=== PATIENT | female | born 1955 | race Caucasian/White ===

== ENCOUNTER 2016-05-10 14:09 | Observation (INO) ==
[2016-05-10] MEDS ORDERED: 0.9 % Sodium Chloride 1,000 ML IVC ONE (14:25)
[2016-05-10] MEDS ORDERED: *HR* Metoprolol 5 MG/5 ML VIAL IVP ONE ×2 (14:34→15:25)
--- NOTE | 2016-05-10 14:35 | Emergency Department Note ---
Disposition Clinical Impression: Atrial fibrillation with RVR, History of mitral valve replacement Disposition: Admitted As Inpatient Condition: Fair Time of Disposition: 16:55 Arrhythmia/Palpitations HPI - General Chief Complaint: ED Arrhythmia/Palpitations Stated Complaint: A-FIB Time Seen by Provider: 05/10/16 14:24 Source: patient Limitations: no limitations Nursing Notes Reviewed: Yes Vital Signs Reviewed: Yes - History of Present Illness HPI Narrative: 60-year-old female with history of mitral valve replacement at [facility] in 2007, history of paroxysmal A. fib, normally is rate controlled and rhythm controlled, takes metoprolol 75 mg twice a day, but it lasted today she been going in and out of A. fib, she had a pacemaker placed in 2007 as well after she had V. fib arrest, her pacemaker was interrogated and did show multiple bouts of atrial fibrillation. Patient has had some URI symptoms including cough and congestion. Is a [id number]-hshoxppxt diabetic. States that her sugars up and in control, denies chest pain cough fever chills, urinary symptoms Pt Subjective Complaint: rapid heart beat, "heart racing" Onset (ago): day(s) (2) Duration: intermittent Severity: moderate Context: occurred during rest Arrhythmia History: atrial fibrillation Associated symptoms: Reports: denies other symptoms - Related Data Home Medications Medication Instructions Recorded Confirmed Atorvastatin Calcium [Atorvastatin 20 mg PO DAILY 05/10/16 05/10/16 Calcium] BuPROPion SR (12 HR) [Wellbutrin 150 mg PO BID 05/10/16 05/10/16 SR] Cholecalciferol (D-3) [Vitamin D] 2,000 unit PO DAILY 05/10/16 05/10/16 Fenofibric Acid (Choline) 135 mg PO HS 05/10/16 05/10/16 [Fenofibric Acid] LORazepam [Ativan] 1 mg PO HS 05/10/16 05/10/16 Levothyroxine Sodium 37.5 mcg PO DAILY 05/10/16 05/10/16 [Levothyroxine Sodium] Losartan [Cozaar] 25 mg PO DAILY 05/10/16 05/10/16 Metformin HCl [Metformin HCl] 1,000 mg PO BID 05/10/16 05/10/16 Metoprolol Tartrate [Metoprolol 75 mg PO BID 05/10/16 05/10/16 Tartrate] Mometasone Furoate [Asmanex] 1 puff IH DAILY 05/10/16 05/10/16 Montelukast [Singulair] 10 mg PO DAILY 05/10/16 05/10/16 Omeprazole [PriLOSEC] 40 mg PO DAILY 05/10/16 05/10/16 Tiotropium [place] [Spiriva 1 puff IH BID 05/10/16 05/10/16 Respimat] Warfarin [Coumadin] 3.5 mg PO DAILY 05/10/16 05/10/16 Allergies Allergy/AdvReac Type Severity Reaction Status Date / Time epinephrine Allergy Wheezing Verified 01/09/16 07:36 Hydromorphone [From Dilaudid] Allergy Itching Verified 01/09/16 07:36 Penicillins Allergy Wheezing Verified 01/09/16 07:36 Review of Systems: A 10 point ROS was obtained from the historian. All other systems were reviewed and negative, except as per below, or as documented in the HPI. Constitutional: Denies: fever, chills, weight changes Eyes: Denies: vision changes, eye pain ENT: Denies: nasal congestion, sore throat CV: chest pain, palpitationsDenies: leg swelling Resp: Denies: cough, dyspnea, wheezes, hemoptysis GI: Denies: abdominal pain, N/V/D/C, hematochezia, melena Denies: dysuria, hematuria MSK: Denies: back pain, neck pain, extremity pain Skin: Denies: new rashes, new lesions Neuro: Denies: SHARMA, weakness, sensory changes, gait difficulty Psych: Denies: anxiety, depression All systems ED: reviewed and negative except as stated. Past Medical History - Past Medical History Attestation: Yes The following information was validated with the patient. Source: patient Medical history: Reports: atrial fibrillation, CVA, diabetes, hypertension, thyroid disease, other - Social History Smoking Status: Never smoker Alcohol use: Reports: none Drug use: Reports: none Physical Exam Constitutional: alert and oriented, mild distress, vital signs reviewed and were tachycardia Neck: normal inspection, neck is supple, trachea midline, no JVD Resp: normal chest inspection, CTA bilaterally, no resp distress, symmetric chest rise CV: Irregularly irregular rhythm systolic ejection murmur, Pulses +2 Rad, +2 DP/ PT bilaterally, no pedal edema Back: normal inspection, no tenderness to palpation Neuro: A&O3, CN II-XII grossly intact bilaterally, no gross motor or sensory deficits bilaterally MSK: normal inspection, bilateral UE and LE with normal ROM and no deformities Psych: normal mood, normal affect Skin: No rashes, skin warm, dry, intact - General Limitations: no limitations General appearance: alert Course Course Narrative: 60-year-old female with paroxysmal A. fib, will try 50 g of Lopressor, 1 L of fluids, reassessment. Chest pain workup - Reevaluation(s) Reevaluation #1: Admitted to medicine 200cc of fluids, in will give Cardizem gtt if unable to convert to sinus after fluids prior to floor. Time: 16:55 - Consultations Consultation #1: SPoke with Dr Carter given rate in 80s hx of afib mitral stenosis MVR, and anticoagulated, now rate controlled OK for DC home, but could obs to hospitalist cards will consult. After this patient went to 120s, second 1 L of fluids ordered will addmit for Afib RVR cards consult. Time: 16:19 Vital Signs Temperature 97.4 F L 05/10/16 14:10 Pulse Rate 122 05/10/16 14:10 Respiratory Rate 18 05/10/16 14:10 Blood Pressure 115/63 05/10/16 14:10 O2 Sat by Pulse Oximetry 95 05/10/16 14:10 Temperature 98.6 F 05/10/16 19:29 Pulse Rate 78 05/10/16 19:29 Respiratory Rate 15 05/10/16 19:29 Blood Pressure 114/72 05/10/16 19:29 O2 Sat by Pulse Oximetry 94 L 05/10/16 19:29 Oxygen Delivery Oxygen Delivery Room Air Arrhythmia/Palpitations - [facility] Narrative Medical decision making narrative: 60 female with facial fibrillation rapid ventricular response, unable to convert with fluids and IV metoprolol, admitted to medicine service after consultation with cardiology in stable condition. - Differential Diagnosis Differential Diagnosis: Likely: palpitations, artial arrhythmia - Medical Records Medical records reviewed: Yes I reviewed the patient's medical records. - Lab Data Lab results reviewed: Yes I reviewed the patient's lab results. Result diagrams: 05/10/16 14:35 05/10/16 14:35 Lab Results 05/10/16 05/10/16 05/10/16 Range/Units 14:35 14:35 14:35 WBC 8.5 (4.3-11.1) K/mcL RBC 4.82 (3.82-4.97) M/mcL Hgb 13.1 (11.5-15.4) g/dL Hct 41.9 (35.3-44.9) % MCV 86.9 (83.0-100.0) fL MCH 27.2 L (28.0-33.3) pg MCHC 31.3 L (31.6-35.5) g/dL RDW 14.9 H (11.5-14.5) % Plt Count 331 (140-400) K/mcL MPV 10.6 (9.4-12.4) fL Immature Gran % 0.4 (0-4) % Seg Neutrophils % 59.6 % Lymphocytes % 26.5 % Monocytes % 9.0 % Eosinophils % 3.8 % Basophils % 0.7 % Neutrophils # 5.1 (1.6-8.9) K/mcL Lymphocytes # 2.2 (0.6-4.6) K/mcL Monocytes # 0.8 (0.0-1.3) K/mcL Eosinophils # 0.3 (0.0-0.6) K/mcL Basophils # 0.1 (0.0-0.2) K/mcL PT (9.4-12.1) Seconds INR APTT (26.0-36.0) Seconds Sodium 138 (136-145) mEq/L Potassium 3.7 (3.5-4.5) mEq/L Chloride 105 (98-109) mEq/L Carbon Dioxide 23 (19-29) mEq/L BUN 14 (7-20) mg/dL Creatinine 0.84 (0.57-1.11) mg/dL Est GFR ( Amer) > 60 (> 60) Est GFR (Non-Af Amer) > 60 (> 60) BUN/Creatinine Ratio 17 (6-26) Glucose 300 H (70-99) mg/dL Calculated Osmolality 298 (280-300) Calcium 10.8 (8.6-10.8) mg/dL Troponin I 0.00 (0-0.03) ng/mL Urine Color (Yellow) Urine Clarity (Clear) Urine pH (5.0-8.0) pH Units Ur Specific [place] (1.010-1.025) Urine Protein (Neg-Trace) mg/dL Urine Glucose (UA) (Normal) mg/dL Urine Ketones (Negative) mg/dL Urine Blood (Negative) Urine Nitrite (Negative) Urine Bilirubin (Negative) Urine Urobilinogen (Normal) mg/dL Ur Leukocyte Esterase (Negative) Ur Culture Indicated? (NO) 05/10/16 05/10/16 Range/Units 14:35 15:04 WBC (4.3-11.1) K/mcL RBC (3.82-4.97) M/mcL Hgb (11.5-15.4) g/dL Hct (35.3-44.9) % MCV (83.0-100.0) fL MCH (28.0-33.3) pg MCHC (31.6-35.5) g/dL RDW (11.5-14.5) % Plt Count (140-400) K/mcL MPV (9.4-12.4) fL Immature Gran % (0-4) % Seg Neutrophils % % Lymphocytes % % Monocytes % % Eosinophils % % Basophils % % Neutrophils # (1.6-8.9) K/mcL Lymphocytes # (0.6-4.6) K/mcL Monocytes # (0.0-1.3) K/mcL Eosinophils # (0.0-0.6) K/mcL Basophils # (0.0-0.2) K/mcL PT 33.8 H (9.4-12.1) Seconds INR 3.0 APTT 41.7 H (26.0-36.0) Seconds Sodium (136-145) mEq/L Potassium (3.5-4.5) mEq/L Chloride (98-109) mEq/L Carbon Dioxide (19-29) mEq/L BUN (7-20) mg/dL Creatinine (0.57-1.11) mg/dL Est GFR ( Amer) (> 60) Est GFR (Non-Af Amer) (> 60) BUN/Creatinine Ratio (6-26) Glucose (70-99) mg/dL Calculated Osmolality (280-300) Calcium (8.6-10.8) mg/dL Troponin I (0-0.03) ng/mL Urine Color Yellow (Yellow) Urine Clarity Clear (Clear) Urine pH 6.5 (5.0-8.0) pH Units Ur Specific [place] 1.009 L (1.010-1.025) Urine Protein Negative (Neg-Trace) mg/dL Urine Glucose (UA) 100 H (Normal) mg/dL Urine Ketones Negative (Negative) mg/dL Urine Blood Negative (Negative) Urine Nitrite Negative (Negative) Urine Bilirubin Negative (Negative) Urine Urobilinogen Normal (Normal) mg/dL Ur Leukocyte Esterase Negative (Negative) Ur Culture Indicated? NO (NO) - Radiology Data Radiology results reviewed: Yes I reviewed the patient's radiology results. - EKG Data EKG attestation: Yes I reviewed and interpreted this EKG. Rate: tachycardia (121 bpm) Rhythm: A.Fib ST segment depression in: v2 Interpretation: no acute changes ([id number]) Attestation Statement - Attestation Attestation: For this encounter, I have reviewed the resident, SCALLOP DREDGER, or PA documentation, treatment plan, and medical decision making; and I have had face to face time with this patient. 60-year-old female presents with concerns of atrial fibrillation. Patient states that she has a history of paroxysmal atrial fibrillation and occasionally goes into an abnormal rhythm. Patient states she felt herself go into atrial fibrillation earlier today prior to arrival. Last and she was evaluated for atrial fibrillation and she was given IV fluids and converted back to sinus rhythm. Patient has a history of mitral valve replacement and follows Dr. Griffith for cardiology. On physical exam the patient has lungs that are clear to auscultation bilaterally. She has pulses palpable in all extremities. Patient was given a liter of IV fluids as well as 2 doses of Lopressor which did improve her heart rate however her BP dropped below 100 systolic. Patient felt lightheaded in the emergency department. The resident spoke with Dr. Carter regarding the patient's case and presentation who agreed with the plan for admission to the hospital for continuation of care. Patient was started on Cardizem in the emergency department prior to going upstairs. BP stable prior to departure. Patient was admitted to the hospitalist for continued care.
[2016-05-10 14:51] LABS: Basophils # 0.1 K/mcL (0.0-0.2); Basophils % 0.7 %; Bilirubin,Urine Negative (Negative); Blood,Urine Negative (Negative); Clarity,Urine Clear (Clear); Color,Urine Yellow (Yellow); Eosinophils # 0.3 K/mcL (0.0-0.6); Eosinophils % 3.8 %; Glucose,Urine (UA) 100 mg/dL (Normal); Hematocrit 41.9 % (35.3-44.9); Hemoglobin 13.1 g/dL (11.5-15.4); Immature Granulocytes % 0.4 % (0-4); Ketones,Urine Negative (Negative); Leukocyte Esterase,Urine Negative (Negative); Lymphocytes # 2.2 K/mcL (0.6-4.6); Lymphocytes % 26.5 %; Mean Corpuscular HGB Conc 31.3 g/dL (31.6-35.5); Mean Corpuscular Hemoglobin 27.2 pg (28.0-33.3); Mean Corpuscular Volume 86.9 fL (83.0-100.0); Mean Platelet Volume 10.6 fL (9.4-12.4); Monocytes # 0.8 K/mcL (0.0-1.3); Neutrophils # 5.1 K/mcL (1.6-8.9); Nitrite,Urine Negative (Negative); PH,Urine 6.5 pH Units (5.0-8.0); Platelet Count 331 K/mcL (140-400); Protein,Urine Negative (Neg-Trace); Red Blood Count 4.82 M/mcL (3.82-4.97); Red Cell Distribution Width 14.9 % (11.5-14.5); Segmented Neutrophils % 59.6 %; Specific Gravity,Urine 1.009 (1.010-1.025); Urobilinogen,Urine Normal (Normal)
[2016-05-10 15:02] LABS: BUN/Creatinine Ratio 17 (6-26); Blood Urea Nitrogen 14 mg/dL (7-20); Calcium 10.8 mg/dL (8.6-10.8); Carbon Dioxide 23 mEq/L (19-29); Chloride 105 mEq/L (98-109); Glucose 300 mg/dL (70-99); Osmolality,Calculated 298 (280-300); Potassium 3.7 mEq/L (3.5-4.5); Sodium 138 mEq/L (136-145); eGFR For African Americans > 60 (> 60); eGFR For Non-African Americans > 60 (> 60)
[2016-05-10 15:19] LABS: Prothrombin Time 33.8 Seconds (9.4-12.1)
[2016-05-10 15:22] LABS: Activated Partial Thrombo Time 41.7 Seconds (26.0-36.0)
[2016-05-10] MEDS ORDERED: 0.9 % Sodium Chloride 1,000 ML IV ONE (16:21)
[2016-05-10] MEDS ORDERED: Dextrose Gel 15 GM PO PRN ×2 (20:28)
[2016-05-10] MEDS ORDERED: Ondansetron 4 MG/2 ML VIAL IVP PRN (20:28)
[2016-05-10] MEDS ORDERED: D5% in Water 1,000 ML IV PRN ×2 (20:28→20:33)
[2016-05-10] MEDS ORDERED: *HR* HYDROcodone/Acet 5/325 mg TABLET PO PRN (20:28)
[2016-05-10] MEDS ORDERED: *HR* Dextrose 50 % in Water (Syg) 50 ML SYRINGE IVP PRN (20:28)
[2016-05-10] MEDS ORDERED: Mag Hydrox/Al Hydrox/Simeth 30 ML UDC PO PRN (20:28)
[2016-05-10] MEDS ORDERED: Acetaminophen 325 MG TABLET PO PRN (20:28)
[2016-05-10] MEDS ORDERED: Naloxone 0.4 MG/ML INJ IVP PRN (20:28)
[2016-05-10] MEDS ORDERED: MOM Conc 10 ML UD.LIQ PO PRN (20:28)
[2016-05-10] MEDS ORDERED: 0.9 % Sodium Chloride 1,000 ML IVC SCH (20:30)
[2016-05-10] MEDS ORDERED: *HR* LORazepam 1 MG TABLET PO SCH (21:00)
[2016-05-10] MEDS ORDERED: BuPROPion SR (12 HR) 150 MG TABLET PO SCH (21:00)
[2016-05-10] MEDS ORDERED: Fenofibrate 54 MG TABLET PO SCH (21:00)
[2016-05-10] MEDS ORDERED: Insulin LISPRO 300 UNITS/3 ML VIAL SQ SCH (21:00)
--- NOTE | 2016-05-10 21:37 | Internal Med History&Physical ---
Date of Encounter: 05/10/16 Time of Encounter: 20:00 Assessment and Plan (1) Atrial fibrillation with RVR Current visit: Yes Status: Chronic Pt in afib for the last 2 days. She normally converts with IV fluids. Original EKG in ED a-fib RVR, rate 121. Pt takes Metoprolol 50mg po bid for rate and rhythm control and has not missed doses. She believes that URI symptoms are the cause of this episode. During exam pt was found to be regular rate and rhythm. Repeat EKG shows paced rhythm, rated 60. Pt has denied cp or sob throughout. Maintain metoprolol dose [employer] VS Gentle IV hydration 0.9NS at 75ml/hour (2) URI (upper respiratory infection) Current visit: Yes Status: Acute Pt states that she has had 2 days of weakness, fatigue, non productive cough and rhinorrhea. Denies fever. Flu swab ordered and pending. Qualifiers: URI type: unspecified viral URI Qualified Code(s): J06.9 - Acute upper respiratory infection, unspecified; B97.89 - Other viral agents as the cause of diseases classified elsewhere (3) Pacemaker Current visit: Yes Status: Acute Pacemaker implanted in 2007 after cardiac arrest at [facility] 1 day s/p mitral valve replacment. Last EKG showed paced rhythm. Interrogated today. 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 (5) Diabetes mellitus Current visit: Yes Status: Acute Serum glucose 300 in ED, 1 hour post prandial. A1c 7.3 in Jan 2016 A1c Diabetic diet Sliding scale insulin Accucheck achs Qualifiers: Diabetes mellitus type: type 2 Diabetes mellitus complication status: without complication Diabetes mellitus longterm insulin use: without termite treater helper use Qualified Code(s): E11.9 - Type 2 diabetes mellitus without complications Internal Medicine - H&P: HPI Admitted From: Home Plans for Post Hospital Care: Home History of present illness: Ms. Chen is a 60 year old female with a history of mitral valve replacement in 2007, cardiac arrest and pacer placement, and paroxysmal afib. She reports URI symptoms with cough, congestion, weakness, fatigue, and rhinorrhea for 2 days, which she believes caused the a-fib. She states that normally she can convert with a liter of IV fluids, however 2 liters today did not convert her. She normally takes metoprolol 75mg po bid for rate and rhythm control and has not missed a dose. 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 During exam, I noted that her rate was 62 and her apical and radial both felt regular. Stat EKG ordered which showed paced rhythm. Past Med Surg Social Fam HX - Past Medical History Medical history: atrial fibrillation, CVA, diabetes, hypertension, thyroid disease, other Psychiatric history: no psych history - Past Surgical History Surgical History: hysterectomy, pacemaker/AICD - Social History Smoking Status: Never smoker Smokeless Tobacco Status: No Alcohol use: none Drug use: none - Family History Mother Age: 79 Living Status: Still Living Hx Family Cardiac Disorders: Yes Hx Family Cancer: Yes Hx Family Endocrine Disorder: Yes Internal Medicine - H&P: Meds Atorvastatin Calcium [Atorvastatin Calcium] 20 mg PO DAILY 05/10/16 [History] BuPROPion SR (12 HR) [Wellbutrin SR] 150 mg PO BID 05/10/16 [History] Cholecalciferol (D-3) [Vitamin D] 2,000 unit PO DAILY 05/10/16 [History] Fenofibric Acid (Choline) [Fenofibric Acid] 135 mg PO HS 05/10/16 [History] LORazepam [Ativan] 1 mg PO HS 05/10/16 [History] Levothyroxine Sodium [Levothyroxine Sodium] 37.5 mcg PO DAILY 05/10/16 [History] Losartan [Cozaar] 25 mg PO DAILY 05/10/16 [History] Metformin HCl [Metformin HCl] 1,000 mg PO BID 05/10/16 [History] Metoprolol Tartrate [Metoprolol Tartrate] 75 mg PO BID 05/10/16 [History] Mometasone Furoate [Asmanex] 1 puff IH DAILY 05/10/16 [History] Montelukast [Singulair] 10 mg PO DAILY 05/10/16 [History] Omeprazole [PriLOSEC] 40 mg PO DAILY 05/10/16 [History] Tiotropium [place] [Spiriva Respimat] 1 puff IH BID 05/10/16 [History] Warfarin [Coumadin] 3.5 mg PO DAILY 05/10/16 [History] Allergies epinephrine Allergy (Verified 01/09/16 07:36) Wheezing Hydromorphone [From Dilaudid] Allergy (Verified 01/09/16 07:36) Itching Penicillins Allergy (Verified 01/09/16 07:36) Wheezing All Systems PM: A 10-system review of systems was performed and is negative for pertinent findings except as documented above in the HPI. - Constitutional Constitutional: fatigue, weakness, no chills, no fever(s), no night sweats - Cardiovascular Cardiovascular ROS IM: irregular heart rhythm, palpitations, no chest pain, no diaphoresis, no dyspnea, no edema, no lightheadedness - Respiratory Respiratory: no cough, no dyspnea on exertion, no wheezing, no pain on inspiration, no pain with cough - Gastrointestinal Gastrointestinal: no constipation, no diarrhea, no nausea, no vomiting - Constitutional Vitals: Temp Pulse Resp BP Pulse Ox 98.6 F 78 15 114/72 94 L 05/10/16 19:29 05/10/16 19:29 05/10/16 19:29 05/10/16 19:29 05/10/16 19:29 General appearance: Present: A&O X 3, pleasant Exam: Pt was very pale on initial exam. - Head Head exam: Present: atraumatic, normal inspection - Neck Neck exam general surgery: Absent: lymphadenopathy, tenderness - Respiratory Respiratory exam: Present: CTAB. Absent: accessory muscle use, chest wall tenderness, decreased breath sounds, rales - Cardiovascular Cardiovascular exam: Present: RRR, +S1, +S2 - GI/Abdominal GI/Abdominal exam: Present: normal bowel sounds. Absent: tenderness - Extremities Exam Extremities exam: Present: full ROM, normal capillary refill, normal inspection , warm, radial pulses palpable and symetrical. Absent: calf tenderness, joint swelling, pedal edema, tenderness - Neurological Exam Neurological exam: Present: alert, oriented X3. Absent: facial droop, speech deficit Internal Med - H&P Results - Labs CBC & Chem 7: 05/10/16 14:35 05/10/16 14:35 - EKG Data EKG shows normal: sinus rhythm Rate: normal - EKG Data EKG comments: 05/10/16 21:49 Per HPI pt was regular rate and rhythm during exam. Repeat EKG showed atrial pacing HI int 203 QRS 86 QT/QTc 415/415
[2016-05-10] MEDS ORDERED: *HR* Warfarin 1 MG TABLET PO SCH (22:45)
[2016-05-10] MEDS: Budesonide Neb 0.5 MG/2 ML IH SCH (23:11)
[2016-05-11 06:34] VITALS: BP 105/64
[2016-05-11 06:49] LABS: Basophils % 0.6 %; Eosinophils # 0.3 K/mcL (0.0-0.6); Eosinophils % 4.3 %; Hematocrit 33.3 % (35.3-44.9); Hemoglobin 10.5 g/dL (11.5-15.4); Immature Granulocytes % 0.1 % (0-4); Immature Platelets 3.7 % (1.1-6.1); Lymphocytes # 2.2 K/mcL (0.6-4.6); Lymphocytes % 30.6 %; Mean Corpuscular HGB Conc 31.5 g/dL (31.6-35.5); Mean Corpuscular Hemoglobin 27.9 pg (28.0-33.3); Mean Corpuscular Volume 88.3 fL (83.0-100.0); Mean Platelet Volume 10.9 fL (9.4-12.4); Monocytes # 0.8 K/mcL (0.0-1.3); Monocytes % 11.2 %; Neutrophils # 3.7 K/mcL (1.6-8.9); Platelet Count 248 K/mcL (140-400); Red Blood Count 3.77 M/mcL (3.82-4.97); Red Cell Distribution Width 15.2 % (11.5-14.5); Segmented Neutrophils % 53.2 %
[2016-05-11 07:03] LABS: BUN/Creatinine Ratio 18 (6-26); Blood Urea Nitrogen 13 mg/dL (7-20); Calcium 9.8 mg/dL (8.6-10.8); Carbon Dioxide 23 mEq/L (19-29); Chloride 109 mEq/L (98-109); Glucose 185 mg/dL (70-99); Osmolality,Calculated 295 (280-300); Potassium 3.9 mEq/L (3.5-4.5); Sodium 140 mEq/L (136-145); eGFR For African Americans > 60 (> 60); eGFR For Non-African Americans > 60 (> 60)
[2016-05-11] MEDS ORDERED: Insulin LISPRO 300 UNITS/3 ML VIAL SQ SCH (07:30)
[2016-05-11] MEDS: Budesonide Neb 0.5 MG/2 ML IH SCH (07:51)
--- NOTE | 2016-05-11 08:19 | Cardiology Consult Note ---
Date of Encounter: 05/11/16 Time of Encounter: 07:30 Assessment and Plan (1) PAF (paroxysmal atrial fibrillation) Current Visit: Yes Status: Acute Longstanding hx of PAF controlled on betablocker. She states she typically converts with IVF fluid and extra doses of betablocker. Discussed adding additional agent, cardizem, due to frequent episodes of PAF; however, she is not intersted at this time. Discussed antiarrhythmic therapy, she declines at this time. Converted to SR yesterday evening. RVR likely provoked by URI and uncontrolled blood glucose. Anticoagulted on Coumadin, goal INR 2.5-3.5, hx of mechanical MV. Offered appt with [facility] Rasheed; however, at this time she wishes to follow-up with Dr. Yin. No further cardiac testing warranted at this time, Cardiology will sign-off. 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 (3) Pacemaker Current Visit: Yes Status: Acute Routinely follows with [facility]. Discussion w patient/family: The assessment and plan as outlined above was discussed with the patient and/or family members who expressed understanding and agreement. All questions were answered. Thank you for involving us in the care of your patient. Please call with any questions. The patient will be discussed and reviewed with Dr. Carter; changes to be made accordingly. History of Present Illness Consult date: 05/11/16 Requesting physician: Pretty Piña Consult reason: Afib with RVR Chief complaint: Palpitations History of present illness: Ms. Chen is a 60 year old female with PMH significant for TRENT on Bipap, PAF, MVR, PPM, and DMII who presented to ED with 1-2 day history of palpitations, she reports she knew she was in atrial fibrillation. Associated symptoms include uncontrolled blood glucose and URI symptoms. She took an extra 50 mg of Lopressor at home on Friday, however she remained in atrial fibrillation. She reports several episodes of PAF in the past few months, she states afib typically occurs with any illness, fatigue, or when she is really tired. Recent CV testing: TTE (limited) 09/06/15: EF 60%, normal functioning MV Regadenoson nuclear 02/27/16: perfusion imaging negative for ischemia or infarct Past Med Surg Social Fam HX - Past Medical History Medical history: atrial fibrillation, CVA, diabetes, hypertension, thyroid disease, valvular heart disease (MVR) Psychiatric history: no psych history - Past Surgical History Surgical History: heart valve replacement, hysterectomy, pacemaker - Social History Smoking Status: Never smoker Smokeless Tobacco Status: No Alcohol use: none Drug use: none - Family History Mother Age: 79 Living Status: Still Living Hx Family Cardiac Disorders: Yes Hx Family Cancer: Yes Hx Family Endocrine Disorder: Yes Medications and Allergies Atorvastatin Calcium [Atorvastatin Calcium] 20 mg PO DAILY 05/10/16 [History] BuPROPion SR (12 HR) [Wellbutrin SR] 150 mg PO BID 05/10/16 [History] Cholecalciferol (D-3) [Vitamin D] 2,000 unit PO DAILY 05/10/16 [History] Fenofibric Acid (Choline) [Fenofibric Acid] 135 mg PO HS 05/10/16 [History] LORazepam [Ativan] 1 mg PO HS 05/10/16 [History] Levothyroxine Sodium [Levothyroxine Sodium] 37.5 mcg PO DAILY 05/10/16 [History] Losartan [Cozaar] 25 mg PO DAILY 05/10/16 [History] Metformin HCl [Metformin HCl] 1,000 mg PO BID 05/10/16 [History] Metoprolol Tartrate [Metoprolol Tartrate] 75 mg PO BID 05/10/16 [History] Mometasone Furoate [Asmanex] 1 puff IH DAILY 05/10/16 [History] Montelukast [Singulair] 10 mg PO DAILY 05/10/16 [History] Omeprazole [PriLOSEC] 40 mg PO DAILY 05/10/16 [History] Tiotropium [place] [Spiriva Respimat] 1 puff IH BID 05/10/16 [History] Warfarin [Coumadin] 3.5 mg PO DAILY 05/10/16 [History] Allergies epinephrine Allergy (Verified 01/09/16 07:36) Wheezing Hydromorphone [From Dilaudid] Allergy (Verified 01/09/16 07:36) Itching Penicillins Allergy (Verified 01/09/16 07:36) Wheezing All Systems Review: A 10-system review of systems was performed and is negative for pertinent findings except as documented above in the HPI. - Cardiovascular Cardiovascular: as per HPI Physical Examination Vital Signs, Last 4 Hours Temp Pulse Resp BP Pulse Ox 05/11/16 07:51 19 98 05/11/16 06:31 97.3 F L 62 18 105/64 98 05/11/16 05:56 97 05/11/16 05:28 97.5 F L 74 18 99/65 97 General: Conversant HEENT: Atraumatic, Normocephaly Neck: No JVD Cardiac: Reg Rate and Rhythm, Normal S1 and S2, Other (audible click) Lungs: Other (few scattered rhonchi) Neuro: Alert and responsive Abdomen: Soft Skin: No rashes noted on visualized skin Musculoskeletal: No Chest Wall Tenderness Extremities: No Edema, Normal Pulses Results 05/11/16 06:28 05/11/16 06:28 Lab Results 05/11/16 05/11/16 06:28 06:28 WBC 7.0 Hgb 10.5 L D Hct 33.3 L Plt Count 248 Sodium 140 Potassium 3.9 Chloride 109 Carbon Dioxide 23 BUN 13 Creatinine 0.74 Glucose 185 H Calcium 9.8 - Imaging and Cardiology Stress Test: report reviewed Echo: report reviewed Other Results: Telemetry review: avg HR 64. Converted to SR around 7PM - EKG Interpretation EKG results cardiology: personally reviewed Consult Discharge Plan - Plan Referrals: Heber Bowie MD [Primary Care Provider] -
--- NOTE | 2016-05-11 08:44 | Discharge Summary ---
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 residential use Qualified Code(s): E11.9 - Type 2 diabetes mellitus without complications (3) History of mitral valve replacement Priority: Secondary Status: Acute (4) PAF (paroxysmal atrial fibrillation) Priority: Secondary Status: Acute (5) URI (upper respiratory infection) Priority: Secondary Status: Acute Qualifiers: URI type: unspecified viral URI Qualified Code(s): J06.9 - Acute upper respiratory infection, unspecified; B97.89 - Other viral agents as the cause of diseases classified elsewhere - Discharge Medications Home Medications: Atorvastatin Calcium 20 mg PO DAILY 05/10/16 [History] BuPROPion SR (12 HR) [Wellbutrin SR] 150 mg PO BID 05/10/16 [History] Cholecalciferol (D-3) [Vitamin D] 2,000 unit PO DAILY 05/10/16 [History] Fenofibric Acid (Choline) [Fenofibric Acid] 135 mg PO HS 05/10/16 [History] LORazepam [Ativan] 1 mg PO HS 05/10/16 [History] Levothyroxine Sodium 37.5 mcg PO DAILY 05/10/16 [History] Losartan [Cozaar] 25 mg PO DAILY 05/10/16 [History] Metformin HCl 1,000 mg PO BID 05/10/16 [History] Metoprolol Tartrate 75 mg PO BID 05/10/16 [History] Mometasone Furoate [Asmanex] 1 puff IH DAILY 05/10/16 [History] Montelukast [Singulair] 10 mg PO DAILY 05/10/16 [History] Omeprazole [PriLOSEC] 40 mg PO DAILY 05/10/16 [History] Tiotropium [place] [Spiriva Respimat] 1 puff IH BID 05/10/16 [History] Warfarin [Coumadin] 3.5 mg PO DAILY 05/10/16 [History] Allergies/Adverse Reactions: Allergies epinephrine Allergy (Verified 01/09/16 07:36) Wheezing Hydromorphone [From Dilaudid] Allergy (Verified 01/09/16 07:36) Itching Penicillins Allergy (Verified 01/09/16 07:36) Wheezing Procedures/tests Complete & Pending: Procedures Performed prior 72 hours Category Date Time Status ECG 12 lead ECG [ECG] Stat Y 05/10/16 20:28 Ordered Date of admission: 05/10/16 16:42 Primary care physician: Heber Bowie MD Discharging clinician: Alex Field Anticipated date of discharge: 05/11/16 - Patient Status Disposition: Home, Self-Care Condition: Good Functional capacity at discharge: independent ambulation Overall status at discharge: patient is back to baseline - Discharge Instructions Instructions: Diabetes Mellitus Type 2 in Adults (DC) Follow Up With: Heber Bowie MD [Primary Care Provider] - (In 1-2 weeks) Additional Instructions: Follow-up with cardiology in 1-2 weeks - Diet and Activity Activity: resume usual activities as tolerated Diet: diabetic diet, low fat, low cholesterol, low salt diet Hospital course: Ms. Chen is a 60 year old female with history of paroxysmal atrial fibrillation who presented to the ER with palpitations and was found to be in rapid A. fib. She received IV Lopressor in the ER with conversion to sinus rhythm. Since then her heart rate has remained in sinus rhythm and well controlled. She is on Coumadin for anticoagulation. Currently she is feeling much better and stable to be discharged home. She will follow up with her hedis analyst after discharge. At this time she has declined to be started on any antiarrhythmic. - Time Spent with Patient Total time spent providing and/or coordinating discharge services: Less than 30 minutes (20 min) - Constitutional Vitals: Temp Pulse Resp BP Pulse Ox 97.3 F L 62 19 105/64 98 05/11/16 06:31 05/11/16 06:31 05/11/16 07:51 05/11/16 06:31 05/11/16 07:51 General appearance: Present: cooperative, A&O X 3, pleasant, no acute distress, answers questions appropriately - Respiratory Respiratory exam: Present: CTAB. Absent: accessory muscle use, rales, rhonchi, wheezes - Cardiovascular Cardiovascular exam: Present: RRR, +S1, +S2. Absent: diastolic murmur, gallop, rubs, systolic murmur - Neurological Exam Neurological exam: Present: alert, oriented X3, no focal deficits. Absent: facial droop, speech deficit - Skin Skin exam: Present: dry, intact - Attending Attestation This document has been at least partially created by [employer] recognition technology by Dr. Field. Errors in grammar, wording or other phrases may exist. If errors are found after the documentation is signed, they will be addressed individually in the addendum section of this document when appropriate.
[2016-05-11] MEDS ORDERED: Cholecalciferol (D-3) 1,000 UNIT TABLET PO SCH (09:00)
[2016-05-11] MEDS ORDERED: BuPROPion SR (12 HR) 150 MG TABLET PO SCH (09:00)
[2016-05-11] MEDS ORDERED: *HR* Warfarin 1 MG TABLET PO SCH (21:00)
--- NOTE | 2016-05-13 15:38 | Electrocardiograph Report ---
[address] [place], [place] [address] Test Date: 2016-05-10 Pat Name: Linda Chen Department: 112 Room: 2A47 Gender: F Production Staff Worker: : 1955 Requested By: Pretty Piña Order Number: [id number] Reading MD: Jose Cruz Mendenhall MD Measurements Intervals [place] Rate: 60 P: -83 [place]: 204 QRS: 95 QRSD: 86 T: 96 QT: 415 QTc: 415 Interpretive Statements ELECTRONIC ATRIAL PACEMAKER BORDERLINE RIGHT AXIS DEVIATION ANTERIOR ISCHEMIA Electronically Signed On 05-13-2016 15:36:02 EST by Jose Cruz Mendenhall MD
--- NOTE | 2016-05-14 05:54 | Electrocardiograph Report ---
[address] [place], [place] [address] Test Date: 2016-05-10 Pat Name: Linda Chen Department: 104 Room: 2A47 Gender: F Granite Worker: : 1955 Requested By: Mauricio Proctor Order Number: [id number] Reading MD: Jose Cruz Mendenhall MD Measurements Intervals [place] Rate: 121 P: PA: 0 QRS: 108 QRSD: 108 T: -30 QT: 315 QTc: 387 Interpretive Statements ATRIAL FIBRILLATION WITH RAPID VENTRICULAR RESPONSE MARKED RIGHT AXIS DEVIATION LOW QRS VOLTAGE IN PRECORDIAL LEADS INCOMPLETE RIGHT BUNDLE BRANCH BLOCK NONSPECIFIC ST \T\ T-WAVE ABNORMALITY Electronically Signed On 05-14-2016 5:52:45 EST by Jose Cruz Mendenhall MD
== END 2016-05-11 09:21 | disposition home or self-care (01) ==
LOC: EMEROO 14:09 → 2ANU 14:09
PROVIDERS: ADMIT Registered Nurse; ATTEND Internal Medicine